=== PATIENT | male | born 1935 | race Hispanic/Latino ===

== ENCOUNTER 2016-12-05 09:07 | Inpatient (IN) | payer MEDICARE ==
--- NOTE | 2016-12-05 09:29 | ED PDOC ---
Arrival/HPI - General Chief Complaint: Fever Time Seen by Provider: 12/05/16 09:20 - History of Present Illness Narrative History of Present Illness (Text): 12/05/16 09:28 81 M presents with pertinent PMHx of Prostate CA presents with 4 day duration of chills and arthralgias. Pt states that he visited a family friend who had a sick child last Tuesday, and his chills and bodyaches started the next morning. Patient denies any symptoms of a URI, denies any f/n/v/d/cp/sob, denies any urinary changes and denies any hematuria, hematochezia, hematemesis. PMD: Dr. Pearce ([facility]) Past Medical History - Provider Review Nursing Documentation Reviewed: Yes - Travel History Have you recently traveled outside [place] w/in the past 3 mons?: No - Infectious Disease Hx of Infectious Diseases: None - Cardiac Hx Hypertension: Yes Other/Comment: valve replacement - Psychiatric Hx Substance Use: No - Anesthesia Hx Anesthesia: Yes Hx Anesthesia Reactions: No Family/Social History - Physician Review Nursing Documentation Reviewed: Yes Family/Social History: No Known Family HX Smoking Status: Current Some Days Smoker Hx Alcohol Use: No Hx Substance Use: No Allergies/Home Meds Allergies/Adverse Reactions: Allergies No Known Allergies Allergy (Verified 12/05/16 09:17) Home Medications: Home Meds Medication Instructions Recorded Confirmed Aspirin [Ecotrin] 81 mg PO DAILY 12/05/16 12/05/16 Tamsulosin [Flomax] 0.4 mg PO DAILY 12/05/16 12/05/16 Unk Bp Med 12/05/16 Review of Systems - Physician Review All systems were reviewed & negative as marked: Yes - Review of Systems Constitutional: Other (Chills). absent: Fatigue, Weight Change Eyes: Normal. absent: Vision Changes, Photophobia ENT: Normal. absent: Hearing Changes, TMJ Pain, Voice Changes, Rhinorrhea, Epistaxis, Sinus Congestion Respiratory: Normal. absent: SOB, Cough, Sputum Cardiovascular: Normal. absent: Chest Pain, Palpitations, Calf Pain, DENT Gastrointestinal: Normal. absent: Abdominal Pain, Diarrhea, Nausea, Vomiting Genitourinary Male: Normal (Patient states that he straight caths himself everyday - no new urinary changes). absent: Dysuria, Frequency, Hematuria Musculoskeletal: Arthralgias. absent: Neck Pain, Joint Swelling, Myalgias Skin: Normal. absent: Rash, Pruritis, Skin Lesions Neurological: Normal. absent: Headache, Dizziness, Focal Weakness Endocrine: Normal. absent: Diaphoresis, Polyuria, Polydipsia Hemo/Lymphatic: Normal. absent: Adenopathy, Easy Bleeding, Easy Bruising Psychiatric: Normal. absent: Anxiety, Depression, Suicidal Ideation Physical Exam Vital Signs Reviewed: Yes Temperature: Febrile Blood Pressure: Hypertensive Pulse: Regular Respiratory Rate: Normal Appearance: Positive for: Well-Appearing, Non-Toxic, Comfortable Pain Distress: None Mental Status: Positive for: Alert and Oriented X 3 - Systems Exam Head: Present: Atraumatic, Normocephalic. No: Contusion, Swelling, Ecchymosis Pupils: Present: PERRL. No: Sluggish, Non-Reactive, Pinpoint Extroacular Muscles: Present: EOMI. No: Gaze Palsy, Entrapment Conjunctiva: Present: Normal. No: Injected, Icteric Ears: Present: Normal, NORMAL TM, Normal Canal. No: TM Bulging, Fluid Mouth: Present: Moist Mucous Membranes, Normal Lips, Normal Tounge, Normal Teeth. No: Dry, Drooling Pharnyx: Present: Normal. No: ERYTHEMA, EXUDATE, TONSILS ENLARGED Nose (External): Present: Atraumatic. No: Abrasion, Contusion, Laceration Nose (Internal): Present: Normal Inspection. No: Moist, Engorged, Edematous, Boggy, Rhinorrhea Neck: Present: Normal Range of Motion. No: MIDLINE TENDERNESS, Paraspinal Tenderness Respiratory/Chest: Present: Clear to Auscultation, Good Air Exchange. No: Respiratory Distress, Accessory Muscle Use, Rales, Rhonchi Cardiovascular: Present: Regular Rate and Rhythm, Normal S1, S2. No: Murmurs Abdomen: Present: Normal Bowel Sounds. No: Tenderness, Distention, Peritoneal Signs, Rebound, Guarding Back: Present: Normal Inspection. No: CVA Tenderness, Midline Tenderness, Paraspinal Tenderness Upper Extremity: Present: Normal Inspection, Normal ROM, NORMAL PULSES. No: Cyanosis, Edema, Tenderness, Swelling Lower Extremity: Present: Normal Inspection, NORMAL PULSES, Normal ROM. No: Edema, CALF TENDERNESS, Capillary Refill < 2 s Neurological: Present: GCS=15, CN II-XII Intact, Speech Normal, Motor Func Grossly Intact, Norm Deep Tendon Reflexes Skin: Present: Warm, Dry, Normal Color. No: Rashes, Diaphoretic, Erythematous, Induration, Hot, Cold Psychiatric: Present: Alert, Oriented x 3, Normal Insight, Normal Concentration , Normal Affect, Normal Mood. No: Depressed Mood, Suicidal Ideation, Homicidal Ideation Vital Signs Temp Pulse Resp BP Pulse Ox 12/05/16 09:16 98.1 F 80 18 141/83 97 Medical Decision Making ED Course and Treatment: 12/05/16 Patient seen and examined with resident. Came up with treatment and disposition plan with resident. (Grant Manning) Assessed 12/05/16 09:37 Impression: 81 y/o Male with PMHx of prostate CA presents with 4 day history of Chills and arthralgias positive for sick contact. Plan: - CBC, CMP - Urine Cx, UA - Blood Cx - Straight cath - Toradol for arthralgias and fever - CXR - Reassess Reassessed 12/05/16 10:24 - CXR shows no acute disease - CBC shows white count of 17.1 Reassessed 12/05/16 10:59 - UA shows moderate leuk esterase, large blood and positive nitrate - Urine culture pending - Spoke to Dr. Pearce, who accepted the admission (Armando Nuñez) - Lab Interpretations Lab Results: 12/05/16 09:42 12/05/16 09:42 Lab Results 12/05/16 10:30: Urine Color Yellow, Urine Appearance Cloudy, Urine pH 6.5, Ur Specific [place] 1.020, Urine Protein 100 H, Urine Glucose (UA) Negative, Urine Ketones Trace H, Urine Blood Large H, Urine Nitrate Positive H, Urine Bilirubin Negative, Urine Urobilinogen 0.2, Ur Leukocyte Esterase Moderate H, Urine RBC 25 - 30, Urine WBC Tntc, Urine Bacteria Rare 12/05/16 09:42: Sodium 135, Potassium 4.3, Chloride 96, Carbon Dioxide 29, Anion Gap 14, BUN 20, Creatinine 1.0, Est GFR ( Amer) > 60, Est GFR (Non- Af Amer) > 60, Random Glucose 125 H, Calcium 9.4, Total Bilirubin 0.6, AST 30, ALT 37, Alkaline Phosphatase 85, Total Protein 7.3, Albumin 3.7, Globulin 3.6, Albumin/Globulin Ratio 1.0 L 12/05/16 09:42: WBC 17.2 H, RBC 4.44, Hgb 14.8, Hct 42.4, MCV 95.5, MCH 33.3, MCHC 34.9, RDW 13.7, Plt Count 178, MPV 10.0, Gran % 84.1 H, Lymph % (Auto) 6.7 L, [place] % (Auto) 9.1 H, Eos % (Auto) 0.0 L, Baso % (Auto) 0.1, Gran # 14.43 H, Lymph # 1.2, [place] # 1.6 H, Eos # 0.0, Baso # 0.01 - RAD Interpretation Radiology Orders: 12/05/16 09:24 CHEST PORTABLE [RAD] Stat - Medication Orders Current Medication Orders: Sodium Chloride (Sodium Chloride 0.9%) 1,000 mls @ 100 mls/hr IV .Q10H [facility] Last Admin: 12/05/16 09:44 Dose: 100 mls/hr Azithromycin (Zithromax 500mg In Ns) 500 mg in 250 mls @ 167 mls/hr IVPB STAT STA PRN Reason: Protocol Stop: 12/05/16 11:16 Last Admin: 12/05/16 10:38 Dose: 167 mls/hr Sodium Chloride (Sodium Chloride 0.9%) 250 mls @ 500 mls/hr IV .Q30M [facility] Last Admin: 12/05/16 10:08 Dose: 500 mls/hr Discontinued Medications Ceftriaxone Sodium (Rocephin 1 Gram Ivpb) 1 gm in 100 mls @ 200 mls/hr IV STAT STA PRN Reason: Protocol Stop: 12/05/16 10:16 Last Admin: 12/05/16 09:58 Dose: 200 mls/hr Ketorolac Tromethamine (Toradol) 15 mg IVP STAT STA Stop: 12/05/16 09:30 Last Admin: 12/05/16 09:41 Dose: 15 mg Disposition/Present on Arrival - Present on Arrival Any Indicators Present on Arrival: No History of DVT/PE: No History of Uncontrolled Diabetes: No Urinary Catheter: No History of Decub. Ulcer: No History Surgical Site Infection Following: None - Disposition Have Diagnosis and Disposition been Completed?: Yes Disposition Time: 11:10 Patient Plan: Admission - Disposition Diagnosis: Urinary tract infection Disposition: HOSPITALIZED Patient Problems: Current Active Problems Problem Status Onset Urinary tract infection Acute Condition: FAIR Referrals: Jae Blanchard DO [Primary Care Provider] - Follow up with primary Forms: [employer] (Yi)
[2016-12-05] MEDS: Sodium Chloride 0.9% 1,000 ML IV SCH (09:44)
[2016-12-05] MEDS ORDERED: Azithromycin 500MG/NS 250ml 500 MG/250 ML BAG IVPB STA (09:47)
[2016-12-05] MEDS ORDERED: cefTRIAXone 1 gm 1 GM/100 ML BAG IV STA (09:47)
[2016-12-05 09:50] LABS: BASO # 0.01 K/mm3 (0.0-2.0); BASO % 0.1 % (0.0-3.0); GRAN # 14.43 (1.4-6.5); GRAN % 84.1 % (50.0-68.0); HEMATOCRIT 42.4 % (42.0-52.0); LYMPH # 1.2 (1.2-3.4); LYMPH % 6.7 % (22.0-35.0); MEAN CELL VOLUME 95.5 fl (80.0-105.0); MEAN CORPUSCULAR HEMOGLOBIN 33.3 pg (25.0-35.0); MEAN CORPUSCULAR HGB CONC 34.9 g/dl (31.0-37.0); MONO # 1.6 (0.1-0.6); MONO % 9.1 % (1.0-6.0); RED CELL DISTRIBUTION WIDTH 13.7 % (11.5-14.5); WHITE BLOOD COUNT 17.2 10^3/ul (4.5-11.0)
[2016-12-05] MEDS ORDERED: Sodium Chloride 0.9% 250 ML IV SCH (09:54)
[2016-12-05 10:00] LABS: ALKALINE PHOSPHATASE 85 U/L (38-126); ALT/SGPT 37 U/L (7-56); AST/SGOT 30 U/L (17-59); BILIRUBIN,TOTAL 0.6 mg/dL (0.2-1.3); BLOOD UREA NITROGEN 20 mg/dL (7-21); CALCIUM 9.4 mg/dL (8.4-10.5); CARBON DIOXIDE 29 mmol/L (21-33); CHLORIDE 96 mmol/L (95-110); GFR AFRICAN-AMERICAN > 60; GLUCOSE,RANDOM 125 mg/dL (70-110); POTASSIUM 4.3 mmol/L (3.6-5.0); SODIUM 135 mmol/L (132-148); TOTAL PROTEIN 7.3 g/dL (5.8-8.3)
--- NOTE | 2016-12-05 10:01 | RAD ---
HISTORY: r/o pneumonia COMPARISON: CT chest without contrast performed 12/12/14 TECHNIQUE: Chest, one view. FINDINGS: Examination limited by habitus and patient obliquity. LUNGS: No focal consolidation. Please note that chest x-ray has limited sensitivity for the detection of pulmonary masses. PLEURA: No significant pleural effusion identified. No definite pneumothorax . CARDIOVASCULAR: Median sternotomy wires. Heart size appears top normal. Ectatic aorta. Dense atherosclerotic calcifications of the aortic knob. OSSEOUS STRUCTURES: Osseous demineralization. Degenerative changes. VISUALIZED UPPER ABDOMEN: Elevation of the left hemidiaphragm. OTHER FINDINGS: None. IMPRESSION: No focal consolidation, significant pleural effusion, or definite pneumothorax identified.
[2016-12-05 10:51] LABS: PH,URINE 6.5 (4.7-8.0); URINE BILIRUBIN NEGATIVE (NEGATIVE); URINE BLOOD LARGE (NEGATIVE); URINE GLUCOSE (UA) NEGATIVE (NEGATIVE); URINE KETONE TRACE mg/dL (NEGATIVE); URINE LEUKOCYTE ESTERASE MODERATE Leu/uL (NEGATIVE); URINE PROTEIN 100 mg/dL (<30 mg/dL); URINE UROBILINOGEN 0.2 E.U./dL (<1 E.U./dL)
[2016-12-05 10:55] LABS: URINE APPEARANCE CLOUDY (CLEAR); URINE COLOR YELLOW (YELLOW)
[2016-12-05 10:58] LABS: URINE BACTERIA RARE (NEG); URINE RBC 25 - 30 /hpf (0-2); URINE WBC TNTC /hpf (0-6)
--- NOTE | 2016-12-05 12:42 | CT ---
PROCEDURE: CT Abdomen and Pelvis without Oral or IV contrast. HISTORY: urosepsis r/o hydro COMPARISON: None available. TECHNIQUE: Contiguous axial images of the abdomen and pelvis. No oral or IV contrast administered. Coronal and Sagittal reformats generated and reviewed. Radiation dose: Total exam DLP = 709.16 mGy-cm. This CT exam was performed using one or more of the following dose reduction techniques: Automated exposure control, adjustment of the mA and/or kV according to patient size, and/or use of iterative reconstruction technique. FINDINGS: There is limited evaluation of the solid organs without the administration of IV contrast. LOWER THORAX: Bibasilar atelectasis. No visible pleural effusion or pneumothorax. Partially imaged aortic valve calcifications. Median sternotomy wires. LIVER: Unremarkable unenhanced appearance. GALLBLADDER AND BILE DUCTS: 3 mm calcification, possibly punctate gallstone. PANCREAS: Unremarkable unenhanced appearance. SPLEEN: Unremarkable unenhanced appearance. ADRENALS: Nodular left adrenal gland. Right adrenal gland appears unremarkable. KIDNEYS AND URETERS: 7 mm left nonobstructing calculus. Enlarged left kidney as compared to the right. Left perinephric fluid/stranding. No left-sided hydronephrosis. Punctate calcification at the right upper pole kidney measures approximately 5 mm. No right-sided hydronephrosis or obstructing calculus. BLADDER: Under distended urinary bladder with Mcintyre catheter present. Air within the urinary bladder may be secondary to recent instrumentation. Thick-walled urinary bladder likely exaggerated by under distension. Recommend correlation with urinalysis in order to assess for cystitis. APPENDIX: The presumed appendix appears within normal limits of caliber. No secondary signs of acute appendicitis. BOWEL: The stomach is nondistended. Lack of oral contrast limits evaluation for bowel pathology. The bowel loops appear within normal limits of caliber without evidence of intestinal obstruction. PERITONEUM: No significant free fluid. No definite free air. LYMPH NODES: No bulky lymphadenopathy identified. VASCULATURE: Dense atherosclerotic calcifications of the aorta and branches. No aortic aneurysm. BONES: Osseous demineralization. Degenerative changes. Facet hypertrophy. OTHER FINDINGS: Bilateral gynecomastia. 3.9 x 2.2 cm low-density focus within the right psoas muscle measures approximately 12-16 HU, possibly fluid. IMPRESSION: 3 mm calcification, possibly punctate gallstone at the gallbladder neck. 7 mm left nonobstructing calculus. Enlarged left kidney as compared to the right. Left perinephric fluid/ stranding. No left-sided hydronephrosis. Punctate calcification at the right upper pole kidney measures approximately 5 mm. No hydronephrosis or obstructing calculus on the right. Under distended urinary bladder with Mcintyre catheter present. Air within the urinary bladder may be secondary to recent instrumentation. Thick-walled urinary bladder likely exaggerated by under distension. Recommend correlation with urinalysis in order to assess for cystitis. 3.9 x 2.2 cm low-density focus within the right psoas muscle measures approximately 12-16 HU, possibly fluid. Nodular right adrenal gland.
[2016-12-05 13:39] VITALS: BMI 25.8
[2016-12-05] MEDS ORDERED: Pneumococcal 23-Valent Vaccine IM ONE (13:51)
--- NOTE | 2016-12-05 15:15 | CON ---
DATE: 12/05/2016 CHIEF COMPLAINT: Urosepsis. 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 He tells me he does it when he feels like he has to urinate. He has a 4-day history of chills and muscle aches. Now, [place] 8[address] white count. I placed the Mcintyre catheter in him to keep in while he is in the hospital. Urine is obtained for C&S. He has no evidence of any testicular pain or flank pain. PAST MEDICAL HISTORY: Significant that he has no allergies. He takes aspirin and Flomax. SOCIAL HISTORY: He still smokes. He does not drink. FAMILY HISTORY: Noncontributory. REVIEW OF SYSTEMS: He has chills, muscle aches, and fatigue. No symptoms referral to the head, eyes, ears, nose or throat. No cardiac or respiratory symptoms. No GI symptoms. No dermatologic or psychiatric symptoms. He does have a history of having had a valve replacement in the past as well. PHYSICAL EXAMINATION: VITAL SIGNS: Shows him to be afebrile, blood pressure 141/83, pulse 80, and respirations 18. HEENT: Normocephalic. Sclerae are clear. Conjunctivae not injected. He does have erythema of his face. NECK: No CVA pain. ABDOMEN: No hepatosplenomegaly, rebound or guarding. No suprapubic tenderness. GENITALIA: Testicles, epididymis, cord, scrotum, and penis normal without any evidence of inflammation. As mentioned, the Mcintyre catheter is draining ernie urine. LAB[place]ATORY [place]: [place] [address] with hemoglobin of 4.8, his creatinine is 1. His urinalysis has too numerous to count WBCs, positive nitrites. ASSESSMENT AND PLAN: He is on Rocephin as per the ER. 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 I would keep the Mcintyre catheter in for now until he is better and can resume intermittent clean catheterization at home. I am also ordering a noncontrast CAT scan to make sure there is no other upper tract obstruction. Vishnu Carrasquillo MD
--- NOTE | 2016-12-05 21:01 | HP ---
HISTORY OF PRESENT ILLNESS: The patient is a 81-year-old white male with history of prostate cancer status post TURP with residual urinary obstruction. The patient does self catheterization at home. He also has a history of hypertension on Tenormin and aspirin, hyperlipidemia, on simvastatin and on Flomax for bladder. The patient had been self catheterizing; however, noticed some darkening and purulent matter in the urine with some sediment. The patient developed some fever and chills, came to the ER who found to have a white count 17,000 with a left shift, also found to have pyuria and bacteruria and hematuria, was admitted to the hospital. PHYSICAL EXAMINATION: GENERAL: Shows well-developed, well-nourished white male, in no apparent distress. HEENT: Essentially within normal limits. HEART: Regular sinus, but systolic ejection murmur over left sternal border. CHEST: Clear to auscultation and percussion. ABDOMEN: Benign. EXTREMITIES: Without cyanosis, clubbing, or edema. NEUROLOGIC: The patient is grossly intact. IMPRESSION: Bladder infection of left hydronephrosis, possible bladder stones, nephrolithiasis, urolithiasis and urinary tract infection. Elvin Pearce MD
[2016-12-06 07:55] LABS: BASO # 0.01 K/mm3 (0.0-2.0); BASO % 0.1 % (0.0-3.0); EOS % 0.1 % (1.5-5.0); GRAN # 8.78 (1.4-6.5); HEMATOCRIT 38.7 % (42.0-52.0); LYMPH # 1.2 (1.2-3.4); LYMPH % 10.3 % (22.0-35.0); MEAN CELL VOLUME 94.6 fl (80.0-105.0); MEAN CORPUSCULAR HEMOGLOBIN 32.5 pg (25.0-35.0); MEAN CORPUSCULAR HGB CONC 34.4 g/dl (31.0-37.0); MEAN PLATELET VOLUME 9.8 fl (7.0-11.0); MONO # 1.4 (0.1-0.6); MONO % 12.5 % (1.0-6.0); RED CELL DISTRIBUTION WIDTH 13.7 % (11.5-14.5); WHITE BLOOD COUNT 11.4 10^3/ul (4.5-11.0)
[2016-12-06 08:04] LABS: ALKALINE PHOSPHATASE 103 U/L (38-126); ALT/SGPT 84 U/L (7-56); AST/SGOT 75 U/L (17-59); BILIRUBIN,TOTAL 0.5 mg/dL (0.2-1.3); BLOOD UREA NITROGEN 16 mg/dL (7-21); CALCIUM 8.6 mg/dL (8.4-10.5); CARBON DIOXIDE 24 mmol/L (21-33); CHLORIDE 104 mmol/L (98-107); GFR AFRICAN-AMERICAN > 60; GLUCOSE,RANDOM 93 mg/dL (70-110); SODIUM 137 mmol/L (132-148); TOTAL PROTEIN 6.1 g/dL (5.8-8.3)
[2016-12-06] MEDS: cefTRIAXone 1 gm 1 GM/100 ML BAG IVPB SCH (09:29)
--- NOTE | 2016-12-06 11:39 | PN ---
DATE: 12/06/2016 The patient's temperature is now 99 down from 102 when he first came in. His pulse is 62. [place] [address] [place] [address]. He is on Rocephin. A CAT scan did not show any evidence of hydronephrosis. I think this was from his not doing his intermittent clean catheterization as often as he should, which resulted in his bout of sepsis. One blood culture is negative. The urine culture is pending. The urine is draining. I would keep the Mcintyre indwelling until he is discharged and then he will resume intermittent clean catheterization three to four times a day as originally instructed. Vishnu Carrasquillo MD
--- NOTE | 2016-12-06 12:36 | PN ---
DATE: SUBJECTIVE: The patient had a 99 temperature and blood pressure is 146/76. White count is up to 11,400. Otherwise, his labs are stable. The patient was admitted with urinary tract infection, possible pyelonephritis. The patient has an obstructive bladder. He self-catheterizes on a regular basis. He has an indwelling Mcintyre. At this point, there is a possibility of ureterolithiasis and nephrolithiasis with obstruction and some stranding in the perinephric area. The patient has had a temperature up to 102 last night. He is on IV antibiotics. PHYSICAL EXAMINATION: VITAL SIGNS: Stable. GENERAL: The patient is without complaints. CHEST: Clear to auscultation. HEART: Regular sinus rhythm. GENITOURINARY: The patient is without pain and has some discomfort from the Mcintyre catheter. PLAN: To continue IV antibiotics and discussed with Dr. Carrasquillo about the possible stent. Elvin Pearce MD
[2016-12-07] MEDS: cefTRIAXone 1 gm 1 GM/100 ML BAG IVPB SCH (09:44)
[2016-12-07] MEDS: Docusate-Senna 50 mg-8.6 mg Tab PO SCH ×2 (09:45→17:29)
[2016-12-07] MEDS: Sodium Chloride 0.9% 1,000 ML IV SCH (09:45)
[2016-12-07] MEDS ORDERED: POLYETHYLENE GLYCOL 3350 17 GM/Dose PACKET PO SCH (10:00)
--- NOTE | 2016-12-07 13:17 | PN ---
DATE: 12/07/2016 SUBJECTIVE: The patient is afebrile. PHYSICAL EXAMINATION: VITAL SIGNS: Blood pressure is 168/87. Pulse 58. Respiration is 22. GENERAL: He is comfortable. LABORATORY DATA: The urine culture showing a gram negative benjamin. Final and sensitivity is not back. His white count is now 11,000 from yesterday. IMPRESSION AND PLAN: Once the sensitivity is known, he could be switched to a p.o. antibiotic and then went home. We will continue with his intermittent catheterization three to four times a day and follow up with me in the office as an outpatient. Vishnu Carrasquillo MD
[2016-12-07 16:14] VITALS: BP 150/73; PULSE 76; RESP 20; TEMP 97.2; O2SAT 97
--- NOTE | 2016-12-07 21:07 | PN ---
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 The patient self-cath at home and is in the hospital with urosepsis. Blood cultures negative. Afebrile at this point. Vital signs were stable. The patient's cultures are positive for an organism sensitive to antibiotics. The patient will be discharged home most likely today and seen by Dr. Carrasquillo and rechecking his cultures, on p.o. Cipro. The patient would continue self catheterization at home. To be followed as an outpatient. PHYSICAL EXAMINATION: Unchanged. GENERAL: The patient is awake and oriented x3. NEUROLOGIC: Grossly intact. CHEST: Clear to auscultation and percussion. HEART: Normal sinus rhythm. Elvin Pearce MD
--- NOTE | 2016-12-09 07:23 | DS ---
HISTORY OF PRESENT ILLNESS: The patient is a 81-year-old white male with history of prostate cancer, status post TURP with bladder incontinence. The patient was admitted to the hospital with urosepsis, treated with IV antibiotics. The patient defervesced, white count dropped from 17,000 back to normal. The patient was seen in consultation with Dr. Carrasquillo. He has an indwelling Mcintyre, which will be removed prior to discharge home. The patient will be discharged home in improved condition. Can do self intermittent catheterizations on a regular basis to continue with p.o. antibiotics at home and to be followed up as an outpatient. FINAL DISCHARGE DIAGNOSES: Urosepsis, bladder incontinence, history of bladder cancer, history of prostate cancer in the past. Elvin Pearce MD [facility] # [id number]
== END 2016-12-07 19:39 | disposition home or self-care (01) | DRG 690 ==
LOC: ED 09:07 → ERH 11:16 → 5RNO 12:13
PROVIDERS: ADMIT Internal Medicine; ATTEND Internal Medicine
DX: N39.0 Urinary tract infection, site not specified (principal); N13.30 Unspecified hydronephrosis; N13.8 Other obstructive and reflux uropathy; I10 Essential (primary) hypertension; E78.5 Hyperlipidemia, unspecified; F17.210 Nicotine dependence, cigarettes, uncomplicated; N31.8 Other neuromuscular dysfunction of bladder; Z85.46 Personal history of malignant neoplasm of prostate; Z90.79 Acquired absence of other genital organ(s)

== ENCOUNTER 2017-09-12 07:45 | Day surgery (SDC) | payer MEDICARE ==
[2017-09-12] MEDS ORDERED: Bupivacaine 0.5% Inj(30mL) ONE (10:28)
[2017-09-12] MEDS ORDERED: Lidocaine 1% Inj (20ml) ONE (10:28)
--- NOTE | 2017-09-12 11:20 | PCM.SURG1 ---
Surgeon's Initial Post Op Note - Surgeon's Notes Surgeon: Dr. Ramirez Multiple Knife Edge Trimmer Operator: Lamar PGY1 Type of Anesthesia: Local Pre-Operative Diagnosis: 3 neck masses Operative Findings: 3 neck masses Post-Operative Diagnosis: 3 neck masses Operation Performed: excision of 3 neck masses Specimen/Specimens Removed: 3 neck masses: post-auricular, posterior-lateral neck, posterior neck Estimated Blood Loss: EBL {In ML}: 5 Blood Products Given: N/A Drains Used: No Drains Post-Op Condition: Good Date of Surgery/Procedure: 09/12/17 Time of Surgery/Procedure: 11:20
[2017-09-12 11:31] VITALS: RESP 20; TEMP 97.6
[2017-09-12 18:00] VITALS: BP 155/60; PULSE 60; O2SAT 96
--- NOTE | 2017-09-22 10:26 | OP ---
PROCEDURE DATE: 09/12/2017 PREOPERATIVE DIAGNOSIS: Multiple lesions at the back of the neck. POSTOPERATIVE DIAGNOSIS: Multiple lesions at the back of the neck. OPERATION PERFORMED: Excision. DESCRIPTION OF PROCEDURE: In the operating room, the patient was identified by name, name of procedure, laterality and my blair on each of the 3 lesions. Each 3 lesions were kept separate. They were mapped out with methylene blue, prepped with chlorhexidine, waiting 3 minutes and then draping. Time-out was done and successful and the areas were then infiltrated with 1% Xylocaine and then cored out with an . These were sent separately and labelled to the Pathology. Incisions were closed with nylon. The patient was taken to Same Day Surgery in good condition with light dressings. No complications. To be seen in my office in about a week to 10 days. Philippe Ramirez MD
== END 2017-09-12 12:00 | disposition home or self-care (01) ==
LOC: OPSURG 07:45
PROVIDERS: ATTEND Surgery
DX: L72.0 Epidermal cyst (principal); L82.1 Other seborrheic keratosis

== ENCOUNTER → 2018-08-08 | Outpatient (CLI) | payer MEDICARE | LOC: RAD 10:59 | DX: R10.2 Pelvic and perineal pain (principal) ==

== ENCOUNTER 2018-08-22 12:20 | Outpatient (CLI) | payer MEDICARE | END 2018-08-22 12:21 | disposition home or self-care (01) | LOC: RAD 12:20 ==